=== PATIENT | female | born 2005 | race Two or more races ===

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

== ENCOUNTER 2023-03-02 10:49 | Inpatient (IN) | payer BC, OTHER ==
[2023-03-02] MEDS ORDERED: TERBUTALINE 1 MG/ML VIAL SQ PRN (11:29)
[2023-03-02] MEDS ORDERED: CARBOPROST TROMETHAMINE 250 MCG/ML 1 ML AMP IM PRN (11:29)
[2023-03-02] MEDS ORDERED: miSOPROStoL 200 MCG TAB PO PRN (11:29)
[2023-03-02] MEDS ORDERED: LIDOCAINE 0.5% (PF) 5 MG/ML (50 ML SDV) SQ PRN (11:29)
[2023-03-02] MEDS ORDERED: OXYTOCIN 10 UNIT/ML 1 ML VIAL IM PRN (11:29)
[2023-03-02] MEDS ORDERED: TRANEXAMIC 1,000 MG/100ML-NACL 1,000 MG in EMPTY BAG 1 BAG IV PRN (11:29)
[2023-03-02] MEDS ORDERED: METHYLERGONOVINE 0.2 MG/ML 1 ML AMP IM PRN (11:29)
[2023-03-02] MEDS ORDERED: OXYTOCIN 30 UNITS/500 ML NS 30 UNIT in SALINE 1 500ML.BAG IV SCH (11:30)
[2023-03-02 11:42] LABS: Anisocytosis Slight; Basophils % (A) 0 %; Eosinophils # (A) 0.2 k/uL (0-0.7); Eosinophils % (A) 2 %; HCT 36.1 % (34.0-46.0); HGB 11.8 gm/dL (11.4-16.0); Lymphocytes # (A) 2.9 k/uL (1.0-4.8); Lymphocytes % (A) 36 %; MCH 25.8 pg (25.0-35.0); MCHC 32.7 g/dL (31.0-37.0); MCV 78.8 fL (80.0-100.0); Microcytosis Slight; Monocytes # (A) 0.5 k/uL (0-1.0); Monocytes % (A) 7 %; Neutrophils # (A) 4.3 k/uL (1.3-7.7); Neutrophils % (A) 54 %; Platelet Count 187 k/uL (150-450); RBC 4.58 m/uL (3.80-5.40); RDW 16.1 % (11.5-15.5); WBC 8.1 k/uL (4.0-11.0)
[2023-03-02] MEDS ORDERED: ROPIVACAINE 5 MG/ML 20 ML AMPULE ONE (11:51)
[2023-03-02] MEDS ORDERED: SODIUM CHLORIDE 0.9% 100 ML BAG ONE (11:51)
[2023-03-02] MEDS ORDERED: fentaNYL (PF) 50 MCG/ML 5 ML AMP ONE (11:51)
[2023-03-02] MEDS: LACTATED RINGERS 1,000 ML IV SCH (14:49)
[2023-03-02] MEDS ORDERED: ZOLPIDEM 5 MG TAB PO PRN (16:36)
[2023-03-02] MEDS ORDERED: diphenhydrAMINE 50 MG/ML 1 ML VIAL IVP PRN ×2 (16:36)
[2023-03-02] MEDS ORDERED: HYDROCORTISONE 2.5% RECTAL CREAM 30 GM TUBE RECTAL PRN (16:36)
[2023-03-02] MEDS ORDERED: LANOLIN CREAM 5 GM TUBE TOPICAL PRN (16:36)
[2023-03-02] MEDS ORDERED: ACETAMINOPHEN TAB 325 MG TAB PO PRN (16:36)
[2023-03-02] MEDS ORDERED: SIMETHICONE 80 MG CHEWABLE PO PRN (16:36)
[2023-03-02] MEDS ORDERED: BENZOCAINE/MENTHOL SPRAY 1 GM/SPRAY AEROSOL TOPICAL PRN (16:36)
[2023-03-02] MEDS ORDERED: diphenhydrAMINE 50 MG CAP PO PRN (16:36)
[2023-03-02] MEDS ORDERED: diphenhydrAMINE 25 MG CAP PO PRN (16:36)
--- NOTE | 2023-03-02 17:51 | P.PROBDLV ---
Vaginal Delivery Note - . Vaginal Delivery Note: The patient was admitted by Dr. Boyer and was found to be 8-9 cm upon her exam. She did receive epidural anesthesia. The patient progressed to complete dilation with spontaneous labor. 3 complete, she began pushing. Initially upon pushing, she began having some decelerations that lasted a couple minutes but did return to baseline. She initially was pushing every other contraction but then the decelerations resolved and she began pushing with each contraction. Epidural was turned off so that she could feel to push. She began pushing more effectively and brought infant's head to a crown. With one further push, the infant's head delivered across the perineum followed by the anterior shoulder. Nose and mouth were bulb suctioned. With one further push, the remainder the infant easily delivered and was placed on mother's abdomen. Cord was clamped and cut and infant was taken to warmer for evaluation. A viable male infant is noted with scores of 8 at 1 minute and 9 at 5 minutes and weight of 8 lbs. 2 oz. Placenta delivered shortly thereafter, intact, with a three-vessel cord. Questionable circumvallate appearance was noted. Uterus contracted well after oxytocin was given and uterine massage was carried out. Inspection of the perineum revealed a small first-degree perineal laceration. This area was anesthetized with 1% lidocaine and then sutured with 3-0 Vicryl suture in a running locked fashion. Estimated blood loss is approximately 200 mL's. Both mother and infant are in stable condition.
[2023-03-02] MEDS: IBUPROFEN 600 MG TAB PO PRN (21:54)
[2023-03-03] MEDS: SENNOSIDES-DOCUSATE SODIUM 1 EACH TAB PO SCH ×3 (03:05→23:44)
[2023-03-03] MEDS: LACTATED RINGERS 1,000 ML IV SCH ×3 (03:06→14:37)
[2023-03-03] MEDS: IBUPROFEN 600 MG TAB PO PRN ×3 (05:13→22:51)
--- NOTE | 2023-03-03 10:05 | P.HPOB ---
History of Present Illness H&P Date: 03/02/23 Chief Complaint: labor, srom 17 year old G1 presents at 41 weeks and 2 days today after contractions for the last few hours. She appears very uncomfortable. Her cervix is 5 cm dilated, 90% effaced, 0 station. She is serg every 2-4 minutes. heart tones 140 with moderate variability and reactive. This has been Dictated by circumvallate placenta. Past Medical History Past Medical History: No Reported History History of Any Multi-Drug Resistant Organisms: None Reported Past Surgical History: No Surgical Hx Reported Past Psychological History: No Psychological Hx Reported Smoking Status: Never smoker Past Alcohol Use History: None Reported Past Drug Use History: None Reported Medications and Allergies Home Medications Medication Instructions Recorded Confirmed Type Vit No.179/Iron/Folic 1 tab PO DAILY 08/05/22 08/05/22 History [ Tablet] Allergies Allergy/AdvReac Type Severity Reaction Status Date / Time No Known Allergies Allergy Verified 03/02/23 11:29 Exam Osteopathic Statement: *. No significant issues noted on an osteopathic structural exam other than those noted in the History and Physical/Consult. Vital Signs Temp Pulse Resp BP Pulse Ox 03/03/23 08:00 98.2 F 88 16 100/62 03/03/23 00:00 98.1 F 97 15 99/60 96 03/02/23 20:20 99.0 F 104 H 16 109/68 96 03/02/23 16:20 98.0 F 76 16 117/68 03/02/23 15:50 80 14 110/56 03/02/23 15:35 88 16 98/55 03/02/23 15:25 90 16 97/56 03/02/23 15:10 102 H 16 101/52 03/02/23 14:55 99.0 F 106 H 16 99/58 100 Intake and Output 03/02/23 03/03/23 03/03/23 22:59 06:59 14:59 Intake Total 4960 480 Output Total 50 Balance 4910 480 Intake: Oral 4960 480 Output: Estimated Blood Loss 50 Other: # Voids 1 1 Heart: Regular rate and rhythm Lungs: Clear to auscultation bilaterally Abdomen: Soft, nontender Extremities: Negative Homans sign Results Result Diagrams: 03/02/23 11:30 Abnormal Lab Results - Last 24 Hours (Table) 03/02/23 Range/Units 11:30 MCV 78.8 L (80.0-100.0) fL RDW 16.1 H (11.5-15.5) % Assessment and Plan (1) Normal labor Current Visit: Yes Status: Acute Code(s): O80 - ENCOUNTER FOR FULL-TERM UNCOMPLICATED DELIVERY; Z37.9 - OUTCOME OF DELIVERY, UNSPECIFIED SNOMED Code(s): 94514289 (2) Circumvallate placenta Current Visit: Yes Status: Acute Code(s): O43.119 - CIRCUMVALLATE PLACENTA, UNSPECIFIED TRIMESTER SNOMED Code(s): 6373170 Plan: 1. Admit to family place 2. Expectant management 3. Epidural for pain management 4. Anticipate normal vaginal delivery
--- NOTE | 2023-03-03 10:10 | P.DS ---
Providers Date of admission: 03/02/23 11:05 Expected date of discharge: 03/04/23 Attending physician: Ladonna Boyer Primary care physician: Stated None - Discharge Diagnosis(es) (1) Normal labor Current Visit: Yes Status: Resolved (2) Circumvallate placenta Current Visit: Yes Status: Resolved (3) Normal vaginal delivery Current Visit: Yes Status: Acute Hospital Course: Patient presented in active labor. She did get an epidural and had an uncomplicated vaginal delivery. course was uneventful. She denies nausea, vomiting, chest pain, shortness of breath or calf pain. Patient will be discharged home day #2 in stable condition to follow-up with me in 6 weeks. Plan - Discharge Summary New Discharge Prescriptions: New Ibuprofen [Motrin] 600 mg PO Q6HR PRN #30 tab PRN Reason: Mild Pain (Scale 1 To 3) No Action Vit No.179/Iron/Folic [ Tablet] 1 tab PO DAILY Discharge Medication List Vit No.179/Iron/Folic [ Tablet] 1 tab PO DAILY 08/05/22 [History] Ibuprofen [Motrin] 600 mg PO Q6HR PRN #30 tab 03/03/23 [Rx] Discharge Disposition: HOME SELF-CARE
[2023-03-03 23:42] VITALS: TEMP 98.2
[2023-03-04 09:01] VITALS: BP 108/67; PULSE 86; RESP 16
[2023-03-04] MEDS: IBUPROFEN 600 MG TAB PO PRN (14:07)
[2023-03-04] MEDS: SENNOSIDES-DOCUSATE SODIUM 1 EACH TAB PO SCH (14:10)
== END 2023-03-04 15:25 | disposition home or self-care (01) | DRG 807 ==
LOC: FBPOP 10:49 → 4FBP 11:05
PROVIDERS: ADMIT Obstetrics & Gynecology; ATTEND Obstetrics & Gynecology
PROC: 10E0XZZ Delivery of Products of Conception, External Approach (ICD-10-PCS; principal; 2023-03-02)
PROC: 0HQ9XZZ Repair Perineum Skin, External Approach (ICD-10-PCS; principal; 2023-03-02)
DX: O48.0 Post-term pregnancy (principal); O43.113 Circumvallate placenta, third trimester; O76 Abnormality in fetal heart rate and rhythm complicating labor and delivery; O70.0 First degree perineal laceration during delivery; Z28.310 Unvaccinated for COVID-19; Z3A.41 41 weeks gestation of pregnancy; Z37.0 Single live birth
CPT/HCPCS: 59025; 85025; 86850; 86900; 86901; 88307; 99213

== ENCOUNTER 2024-06-14 18:09 | Emergency (ER) | payer BC, OTHER ==
--- NOTE | 2024-06-14 19:05 | ED ---
Fever HPI - General Chief Complaint: Abdominal Pain Stated Complaint: Sore Throat Source: patient, RN notes reviewed, old records reviewed Mode of arrival: ambulatory Limitations: no limitations - History of Present Illness Initial Comments: This is a 19-year-old female unable to provide provide history of present illness secondary to language barrier coming in with fever fever abdominal pain sore throat. No medical history, patient's at bedside provides interpretation and history, patient was at your urgent care prior to arrival and sent to ER for further evaluation MD Complaint: fever, other (Sore throat) -: days(s) Temperature Source: subjective Context: sick contacts Associated Symptoms: chills, myalgias, sore throat Treatments Prior to Arrival: none - Related Data Home Medications Medication Instructions Recorded Confirmed Vit No.179/Iron/Folic 1 tab PO DAILY 08/05/22 08/05/22 [ Tablet] Previous Rx's Medication Instructions Recorded Ibuprofen [Motrin] 600 mg PO Q6HR PRN #30 tab 03/03/23 Amoxic-Pot Clav 875-125Mg 1 tab PO Q12HR #14 tablet 06/14/24 [Augmentin 875-125] Allergies Allergy/AdvReac Type Severity Reaction Status Date / Time No Known Allergies Allergy Verified 06/14/24 18:47 Review of Systems ROS Statement: Those systems with pertinent positive or pertinent negative responses have been documented in the HPI. ROS Other: All systems not noted in ROS Statement are negative. Past Medical History Past Medical History: No Reported History History of Any Multi-Drug Resistant Organisms: None Reported Past Surgical History: No Surgical Hx Reported Past Psychological History: No Psychological Hx Reported Smoking Status: Never smoker Past Alcohol Use History: None Reported Past Drug Use History: None Reported General Exam Limitations: no limitations General appearance: alert, in no apparent distress Head exam: Present: atraumatic, normocephalic, normal inspection Eye exam: Present: normal appearance, PERRL, EOMI. Absent: scleral icterus, conjunctival injection, periorbital swelling ENT exam: Present: normal exam, mucous membranes moist, other (Pharyngitis on exam) Neck exam: Present: normal inspection. Absent: tenderness, meningismus, lymphadenopathy Respiratory exam: Present: normal lung sounds bilaterally. Absent: respiratory distress, wheezes, rales, rhonchi, stridor Cardiovascular Exam: Present: regular rate, normal rhythm, normal heart sounds. Absent: systolic murmur, diastolic murmur, rubs, gallop, clicks GI/Abdominal exam: Present: soft, normal bowel sounds. Absent: distended, tenderness, guarding, rebound, rigid Extremities exam: Present: normal inspection, full ROM, normal capillary refill. Absent: tenderness, pedal edema, joint swelling, calf tenderness Back exam: Present: normal inspection Neurological exam: Present: alert, oriented X3, CN II-XII intact Psychiatric exam: Present: normal affect, normal mood Skin exam: Present: warm, dry, intact, normal color. Absent: rash Course Vital Signs 06/14/24 06/14/24 06/14/24 18:54 20:22 20:53 Temperature 103 F H 102.0 F H 102 F H Pulse Rate 104 H 88 Respiratory 16 18 Rate Blood Pressure 99/61 104/61 O2 Sat by Pulse 99 97 Oximetry - Reevaluation(s) Reevaluation #1: Medical records reviewed Reevaluation #2: Patient symptoms improved Reevaluation #3: Patient informed of results questions answered Reevaluation #4: 06/22/24 17:42 Was pt. sent in by a medical professional or institution (Dr. PA, PLAYERS ASSISTANT, urgent care, hospital, or intermediate...) When possible be specific @ -no Did you speak to anyone other than the patient for history (EMS, parent, family, police, friend...)? What history was obtained from this source @ -no Did you review nursing and triage notes (agree or disagree)? Why? @ -agree Are old charts reviewed (outside hosp., previous admission, EMS record, old EKG, old radiological studies, urgent care reports/EKG's, intermediate records)? Report findings @ -yes Differential Diagnosis (chest pain, altered mental status, abdominal pain women, abdominal pain men, vaginal bleeding, weakness, fever, dyspnea, syncope, headac he, dizziness, GI bleed, back pain, seizure, CVA, palpatations, mental health, musculoskeletal)? @ -prior EKG interpreted by me (3pts min.). @ -no X-rays interpreted by me (1pt min.). @ -no CT interpreted by me (1pt min.). @ -no U/S interpreted by me (1pt. min.). @ -no What testing was considered but not performed or refused? (CT, X-rays, U/S, labs)? Why? @ -none What meds were considered but not given or refused? Why? @ -none Did you discuss the management of the patient with other professionals (professionals i.e. , PA, PLAYERS ASSISTANT, lab, RT, psych nurse, web content & social media manager, alligator hunter, teacher, national service officer, casework supervisor)? Give summary @ -no Was smoking cessation discussed for >3mins.? @ -no Was critical care preformed (if so, how long)? @ -no Were there social determinants of health that impacted care today? How? (Homelessness, low income, unemployed, alcoholism, drug addiction, transportation, low edu. Level, literacy, decrease access to med. care, long term, rehab)? @ -none Was there de-escalation of care discussed even if they declined (Discuss DNR or withdrawal of care, Hospice)? DNR status @ -no What co-morbidities impacted this encounter? (DM, HTN, Smoking, COPD, CAD, Cancer, CVA, ARF, Chemo, Hep., AIDS, mental health diagnosis, sleep apnea, morbid obesity)? @ -none Was patient admitted / discharged? Hospital course, mention meds given and route, prescriptions, significant lab abnormalities, going to OR and other pertinent info. @ - 19 female to ER with pharyngitis on exam acute upper respiratory infection pneumonia, patient replaced antibiotics and can be discharged home Discharge Undiagnosed new problem with uncertain prognosis? @ -no Drug Therapy requiring intensive monitoring for toxicity (Heparin, Nitro, Insulin, Cardizem)? @ -no Were any procedures done? @ -no Diagnosis/symptom? @ -Fever pharyngitis and pneumonia Acute, or Chronic, or Acute on Chronic? @ -Acute Uncomplicated (without systemic symptoms) or Complicated (systemic symptoms)? @ -Complicated Side effects of treatment? @ -no Exacerbation, Progression, or Severe Exacerbation? @ -exacerbation Poses a threat to life or bodily function? How? (Chest pain, [place], [place], pneumonia, PE, COPD, DKA, ARF, appy, cholecystitis, CVA, Diverticulitis, Homicidal, Suicidal, threat to staff... and all critical care pts) @ -yes febrile illness Reevaluation #5: Differential Fever: Pneumonia, viral URI, endocarditis, myocarditis, pericarditis, otitis, sinusitis, peritonsillar Abscess, retropharyngeal Abscess, epiglottitis, peritonitis, appendicitis, Shannan cystitis, diverticulitis, hepatitis, colitis, UTI, PID, TOA, pyelonephritis, prostatitis, epididymitis, meningitis, encephalitis, pulmonary embolism, CVA, thyroid storm, pancreatitis, adrenal crisis, cavernous sinus thrombosis, this is not meant to be an all-inclusive list. Medical Decision Making - Medical Decision Making 19 female to ER with pharyngitis on exam acute upper respiratory infection pneumonia, patient replaced antibiotics and can be discharged home - Lab Data Lab Results 06/14/24 06/14/24 06/14/24 Range/Units 19:31 19:31 20:27 Heterophile Antibody Negative (Negative) Influenza Type A (PCR) Not Detected (Not Detectd) Influenza Type B (PCR) Not Detected (Not Detectd) RSV (PCR) Not Detected (Not Detectd) SARS-CoV-2 (PCR) Not Detected (Not Detectd) Group A Strep (PCR) DETECTED A (Not Detectd) Disposition Clinical Impression: Pharyngitis, Fever, Pneumonia Disposition: HOME SELF-CARE Condition: Good Instructions (If sedation given, give patient instructions): Pharyngitis (ED) Prescriptions: Amoxic-Pot Clav 875-125Mg [Augmentin 875-125] 1 tab PO Q12HR #14 tablet Is patient prescribed a controlled substance at d/c from ED?: No Referrals: Doris Mendiola MD [Primary Care Provider] - 1-2 days Time of Disposition: 20:30
[2024-06-14] MEDS: ACETAMINOPHEN TAB 500 MG TAB PO STA (19:31)
[2024-06-14] MEDS: IBUPROFEN 600 MG TAB PO STA (19:32)
[2024-06-14] MEDS: DEXAMETHASONE SOD PHOSPHATE 10 MG/ML 1 ML VIAL IM STA (19:34)
[2024-06-14] MEDS: AMOXIC-POT CLAV 875-125MG 1 EACH TAB PO STA (20:44)
[2024-06-14] MEDS: AMOXIC-POT CLAV 875MG STARTER PACK 2 TAB BTL PO STA (20:44)
[2024-06-14 20:55] VITALS: BP 104/61; PULSE 88; RESP 18; TEMP 102
== END 2024-06-14 20:56 | disposition home or self-care (01) ==
LOC: EC 18:09
DX: J18.9 Pneumonia, unspecified organism (principal); B95.0 Streptococcus, group A, as the cause of diseases classified elsewhere; J02.9 Acute pharyngitis, unspecified
CPT/HCPCS: 36415; 87651; 86308; 87636; 99284; 96372; J1100